=== PATIENT | male | born 1945 | race Caucasian/White ===

== ENCOUNTER 2020-10-17 06:18 | Day surgery (SDC) | payer MEDICARE, SELFPAY ==
[2020-09-11 14:32] VITALS: BMI 32.7
--- NOTE | 2020-10-17 | EGD_PTH ---
PATIENT: SHIRA MATA LOC: [facility] U#:[id number] AGE/SX: 75/M ROOM: RE10/17/[address]: Dr. David Lamb MD : 1945 BED: DIS: 10/17/2020 SPEC #: [id number] RECD: 10/17/20 12:32 STATUS: BORA ROSI #: [id number] DEVONTE: 10/17/20 00:[address]: David Lamb DEPT: SURGICAL PATHOLOGY RECD BY: José Parr ENTERED: 10/17/20 12:33 SP TYPE: EGD BIOPSY OT DR: Dr. Bhavin Lamb III, MD Tissues: A - Duodenum, NOS B - Gastric mucous membrane C - Esophageal mucous membrane Procedures: Surgery Specimen Level IV HEADER OPERATION: EGD PRE-OP DIAGNOSIS: Blood in stool TISSUE SUBMITTED: A ? Duodenum, B ? Antrum for H. pylori and path, C ? Distal esophagus MICROSCOPIC DIAGNOSIS A. Duodenum, biopsy: Gastric metaplasia. B. Gastric antrum, biopsy: Minimal chronic inflammation. C. Distal esophagus, biopsy: Focal changes of reflux. AM:luz 10/18/2020 COMMENT B. The results of immunohistochemistry for Helicobacter pylori will be reported separately ([id number]). MICROSCOPIC DESCRIPTION Slides are reviewed. GROSS DESCRIPTION A - Received in fixative is one container labeled with the patient's name and designated duodenum biopsy. The specimen consists of one irregular fragment of light arnold soft tissue that measures 0.5 x 0.4 x 0.1 cm. The specimen is totally submitted in one cassette. B - Received in fixative is one container labeled with the patient's name and designated antrum biopsy. The specimen consists of one irregular fragment of light arnold soft tissue that measures 0.4 x 0.3 x 0.1 cm. The specimen is totally submitted in one cassette. C - Received is one container labeled with the patient's name and not further designated. The specimen consists of two irregular fragments of light arnold soft tissue that in aggregate measure 0.5 x 0.5 x 0.1 cm. The specimen is totally submitted in one cassette. / ABRAHAN:luz 10/17/20 TC:3 CPT: 81939 x3
--- NOTE | 2020-10-17 | IMM_PTH ---
PATIENT: SHIRA MATA LOC: [facility] U#:[id number] AGE/SX: 75/M ROOM: RE10/17/[address]: Dr. David Lamb MD : 1945 BED: DIS: 10/17/2020 SPEC #: [id number] RECD: 10/17/20 13:29 STATUS: BORA RERika #: [id number] DEVONTE: 10/17/20 00:[address]: David Lamb DEPT: IMMUNOHISTOCHEMISTRY RECD BY: Augustina Vanegas ENTERED: 10/17/20 13:30 SP TYPE: IMMUNO OTHR DR: Dr. Bhavin Lamb III, MD Tissues: B - Stomach, NOS Procedures: H Pylori (initial) PHYSICIAN & INSTITUTION [place] [id number] SPECIMEN INFORMATION: Tissue Source: B - Antrum Clinical Info: Blood in stool Specimen Number: [id number] CPT code: 51215 METHODOLOGY: Deparaffinized sections of prefer/formalin-fixed tissue or PAP/DQ stained slides are incubated with monoclonal/polyclonal antibodies/oligonucleotide probes. Localization is made via biotin free immunoperoxidase method. Appropriate controls are performed and reacted as expected. Results on target cell population are indicated in the following table: RESULTS: ANTIBODY / CLONE RESULT Block B H Pylori (polyclonal) negative These tests were developed and their performance characteristics determined by [facility]. They may not have been cleared or approved by the U.S. Food and Drug Administration. The FDA has determined that such clearance or approval is not necessary. INTERPRETATION: B. Antrum biopsy: Negative for Helicobacter pylori organisms. AM:luz 10/18/2020
--- NOTE | 2020-10-17 08:23 | OP.EGD_ITS ---
Patient Name: Julio Powers Procedure Date: 10/17/2020 7:43 AM Date of : 1945 Age: 75 Procedure: Upper GI endoscopy Indications: Hemocult positive stool Providers: David Lamb MD Referring MD: Bhavin Lamb Iii Medicines: See the Anesthesia note for documentation of the administered medications Complications: No immediate complications. Procedure: Pre-Anesthesia Assessment: - Prior to the procedure, a History and Physical was performed, and patient medications and allergies were reviewed. The patient's tolerance of previous anesthesia was also reviewed. The risks and benefits of the procedure and the sedation options and risks were discussed with the patient. All questions were answered, and informed consent was obtained. Prior Anticoagulants: The patient has taken no previous anticoagulant or antiplatelet agents. ASA Grade Assessment: II - A patient with mild systemic disease. After reviewing the risks and benefits, the patient was deemed in satisfactory condition to undergo the procedure. After obtaining informed consent, the endoscope was passed under direct vision. Throughout the procedure, the patient's blood pressure, pulse, and oxygen saturations were monitored continuously. The gastroscope was introduced through the mouth, and advanced to the second part of duodenum. The upper GI endoscopy was accomplished without difficulty. The patient tolerated the procedure well. Scope In: 7:57:02 AM Scope Out: 8:04:17 AM Total Procedure Duration Time 0 hours 7 minutes 15 seconds Findings: Esophagitis with no bleeding was found 39 cm from the incisors. Biopsies were taken with a cold forceps for histology. A small hiatal hernia was present. Diffuse mildly erythematous mucosa without bleeding was found in the gastric antrum. Biopsies were taken with a cold forceps for histology. Diffuse mildly erythematous mucosa without active bleeding and with no stigmata of bleeding was found in the duodenal bulb. Biopsies were taken with a cold forceps for histology. Impression: - Reflux esophagitis. Biopsied. - Small hiatal hernia. - Erythematous mucosa in the antrum. Biopsied. - Erythematous duodenopathy. Biopsied. Recommendation: - Discharge patient to home. - Resume previous diet. - Continue present medications. - Telephone my office for pathology results in 1 week. Recommend over the counter omeprazole 40mg orally daily Procedure Code(s): --- Professional --- 12265, Esophagogastroduodenoscopy, flexible, transoral; with biopsy, single or multiple Diagnosis Code(s): --- Professional --- K21.0, Gastro-esophageal reflux disease with esophagitis K44.9, Diaphragmatic hernia without obstruction or gangrene K31.89, Other diseases of stomach and duodenum CPT copyright 2017 [employer]. All rights reserved. The codes documented in this report are preliminary and upon churn drill operator review may be revised to meet current compliance requirements. David Lamb MD 10/17/2020 8:22:41 AM This report has been signed electronically. Number of Addenda: 0 Note Initiated On: 10/17/2020 7:43 AM
--- NOTE | 2020-10-17 08:23 | OP.CCLET_ITS ---
10/17/2020 Bhavin Lamb Iii [address] [place] [address] Re : Upper GI endoscopy procedure for Julio Powers Dear Dr. Lamb This procedure was performed on Saturday, October 17, 2020. My impressions and recommendations are as follows: Impressions : - Reflux esophagitis. Biopsied. - Small hiatal hernia. - Erythematous mucosa in the antrum. Biopsied. - Erythematous duodenopathy. Biopsied. Recommendations : - Discharge patient to home. - Resume previous diet. - Continue present medications. - Telephone my office for pathology results in 1 week. Recommend over the counter omeprazole 40mg orally daily My findings are described in the full procedure note, which is enclosed. If I can be of further assistance, please feel free to contact me at Doctor phone number(s): Work: . Sincerely, David Lamb MD 10/17/2020 8:22:41 AM This report has been signed electronically.
--- NOTE | 2020-10-17 08:26 | OP.CCLET_ITS ---
10/17/2020 Bhavin Lamb Iii [address] [place] [address] Re : Colonoscopy procedure for Julio Powers Dear Dr. Lamb This procedure was performed on Saturday, October 17, 2020. My impressions and recommendations are as follows: Impressions : - Hemorrhoids found on perianal exam. - Diverticulosis in the sigmoid colon. - The examination was otherwise normal. - No specimens collected. Recommendations : - Discharge patient to home. - Resume previous diet. - Continue present medications. - Repeat colonoscopy in 10 years for screening purposes. Either mild hemorrhoids or mild gastritis/esophagitis source of stool card positive My findings are described in the full procedure note, which is enclosed. If I can be of further assistance, please feel free to contact me at Doctor phone number(s): Work: . Sincerely, David Lamb MD 10/17/2020 8:25:52 AM This report has been signed electronically.
--- NOTE | 2020-10-17 08:26 | OP.COLON_ITS ---
Patient Name: Julio Powers Procedure Date: 10/17/2020 8:05 AM Date of : 1945 Age: 75 Procedure: Colonoscopy Indications: Heme positive stool Providers: David Lamb MD Referring MD: Bhavin Lamb Iii Medicines: See the Anesthesia note for documentation of the administered medications Patient Profile: Last Colonoscopy: none. The patient's first colonoscopy is today. Complications: No immediate complications. Procedure: Pre-Anesthesia Assessment: - Prior to the procedure, a History and Physical was performed, and patient medications and allergies were reviewed. The patient's tolerance of previous anesthesia was also reviewed. The risks and benefits of the procedure and the sedation options and risks were discussed with the patient. All questions were answered, and informed consent was obtained. Prior Anticoagulants: The patient has taken no previous anticoagulant or antiplatelet agents. ASA Grade Assessment: II - A patient with mild systemic disease. After reviewing the risks and benefits, the patient was deemed in satisfactory condition to undergo the procedure. After I obtained informed consent, the scope was passed under direct vision. Throughout the procedure, the patient's blood pressure, pulse, and oxygen saturations were monitored continuously. The Colonoscope was introduced through the anus and advanced to the cecum, identified by appendiceal orifice and ileocecal valve. The colonoscopy was performed without difficulty. The patient tolerated the procedure well. The quality of the bowel preparation was good. The ileocecal valve and the appendiceal orifice were photographed. Scope In: 8:06:41 AM Scope Withdrawal Time 0 hours 6 minutes 24 seconds Scope Out: 8:17:22 AM Total Procedure Duration Time 0 hours 10 minutes 41 seconds Findings: Hemorrhoids were found on perianal exam. slightly enlarged. No mass A few diverticula were found in the sigmoid colon. The exam was otherwise without abnormality. Impression: - Hemorrhoids found on perianal exam. - Diverticulosis in the sigmoid colon. - The examination was otherwise normal. - No specimens collected. Recommendation: - Discharge patient to home. - Resume previous diet. - Continue present medications. - Repeat colonoscopy in 10 years for screening purposes. Either mild hemorrhoids or mild gastritis/esophagitis source of stool card positive Procedure Code(s): --- Professional --- 58712, Colonoscopy, flexible; diagnostic, including collection of specimen(s) by brushing or washing, when performed (separate procedure) Diagnosis Code(s): --- Professional --- K64.9, Unspecified hemorrhoids R19.5, Other fecal abnormalities K57.30, Diverticulosis of large intestine without perforation or abscess without bleeding CPT copyright 2017 [employer]. All rights reserved. The codes documented in this report are preliminary and upon certified professional coder review may be revised to meet current compliance requirements. David Lamb MD 10/17/2020 8:25:52 AM This report has been signed electronically. Number of Addenda: 0 Note Initiated On: 10/17/2020 8:05 AM
[2020-10-17 09:26] VITALS: BP 112/77; BP 125/87; PULSE 65; RESP 12; TEMP 36.8; O2SAT 100
== END 2020-10-17 09:30 ==
LOC: EN 08:52 → AC 08:52
PROVIDERS: PCP Family Medicine; Referring Provider Family Medicine; Visit Provider Surgery
PROC: 0DJD8ZZ Inspection of Lower Intestinal Tract, Via Natural or Artificial Opening Endoscopic (ICD-10-PCS; CPT 45378; principal; 2020-10-17 07:25)
DX: K57.30 Diverticulosis of large intestine without perforation or abscess without bleeding (principal); K29.50 Unspecified chronic gastritis without bleeding; K21.00 Gastro-esophageal reflux disease with esophagitis, without bleeding; K44.9 Diaphragmatic hernia without obstruction or gangrene; K31.89 Other diseases of stomach and duodenum; K64.9 Unspecified hemorrhoids; Z79.899 Other long term (current) drug therapy
CPT/HCPCS: 43239; 45378; 88305; 88342; J7120; J2405

== ENCOUNTER → 2020-12-27 09:19 | Outpatient (CLI) | payer MEDICARE, SELFPAY ==
[2020-09-11 14:32] VITALS: BMI 32.7
== END ==
PROVIDERS: PCP Family Medicine; Referring Provider Surgery; Visit Provider Surgery
DX: K64.8 Other hemorrhoids (principal); Z98.890 Other specified postprocedural states; Z87.19 Personal history of other diseases of the digestive system
CPT/HCPCS: 82274

== ENCOUNTER 2024-07-29 11:30 | Outpatient (RCR) | payer MEDICARE, SELFPAY ==
--- NOTE | 2024-07-12 10:51 | HP.PTEVAL_ITS ---
Patient's Visit Information Visit Information Visit Information: SHIRA MATA is a 78 year old M referred to Physical Therapy by IFTIKHAR PRIDE with a diagnosis of Radiculopathy LE symptoms. Date of Evaluation: 07/12/24 Physical Therapist: Myron Rojas, DPT, OCS, CSCS Visit Plan Frequency: 2x /Week Duration: 4-6 Weeks Plan: 2x/week for 4-6 weeks for NS positioning Lumbar ROM progression, psoas and quad rollout and stretching, core NS adn general strength to HEP, MH it HEP: trunk rotation, pelvic tilt post, seated flexion with hip precautions, NS position in stand and walk and HO given. Subjective Subjective: [facility] spine doctor sent over. last Thanksgiving started getting R leg/quad pain severe. has had it before but not that bad. L MOLLY 2015. Went to ortho and diagnostics including MRI, US, X ray. Nothing wrong with the hip. Pain got severe with WB. Meds helped it improve. Sent to spine doctor last week and thnks maybe pinched nerve but no back pain. Is to try therapy first to see if it helps and put on strong advil daily and two tyelnol. Now sleeping fine but was trouble at first with uncomfortable position. Pain has abated alot but not gone. Standing is still worse, Steps are OK. Comfortable at rest. needs to be on feet for a while before it kicks in. Gets it daily. No problem with driving. Basic ADLs are I with shower seat but thinks he could stand now. Retired. Spends day: woodworking and avoided it until recently. Has to sit often now when he does it.Slower. No regualr exercises since this started. Used to walk alot. 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 Trasnfer bed and chair I. Steps reciprocal with rail. No pain. Lumbar AROM ext slight pressure L LB, L SB slight pressure L LB, flexion adn R SB are painfree, all are mod limited. psoas, quad and HS all mod tight with a -30 90/90 test. Very little pelvic movement. reflexes 2/3 patella and achilles today. Sensation WNL to gross light touch IN b LE. - slump, - SLR. Obvious IR at opposite hip with hip f Good balance todaylexion testing. core weakness at 3+ flexiona dn ext. Hip strength abd 3+, ext 3, flexion 4- all B. knee and ankle strength 4- B. No pyotomal problems. Only recreated pain today with walking after a while and pain in L quad and below knbee anterior transiently Balance/Special Test Scores Lower Extremity Functional Score: 52 Goals Goal 1:: I appropriate HEP for NS positioning and stretch strength to manage symptoms. Goal Time Frame: 4-6 Weeks Goal 2:: Pain in L quad 90% better and manageable at 1/10 at worst Goal Time Frame: 4-6 Weeks Goal 3:: walk at grocery store without increased pain Goal Time Frame: 4-6 Weeks Goal 4:: work in [employer] again without needing to sit. Goal Time Frame: 4-6 Weeks Rehabilitation Potential Physical Therapy Diagnosis: Likely stenosis with limited LB ROM, tightness in legs and weakness effecting comfortable funciton Rehabilitation Potential: Good Anticipated Interventions Patient/Client Instruction: Educate patient on: Condition and Risk Factors For the Purpose of:: To decrease pain, To increase ROM, To improve nutrient deli very to tissue, To improve muscle performance and motor function, To increase tolerance to activity/condition/position, To improve ability of physical actions for home/community/work/leisure and To improve gait and locomotor functions Therapeutic Exercise to Include: Strength training, Postural training, Flexibilty training, Passive ROM, Active ROM and Dynamic Lumbar Stabilization For the Purpose of:: To decrease pain, To increase ROM, To improve nutrient delivery to tissue, To improve muscle performance and motor function, To increase tolerance to activity/condition/position and To improve gait and locomotor functions Manual Therapy Techniques to Include: Mobilization, Passive ROM and Soft tissue mobilization For the Purpose of:: To decrease pain, To increase ROM, To improve nutrient delivery to tissue, To increase oxygenation perfusion, To improve muscle performance and motor function and To increase tolerance to activity/condition/position Thermo therapy (hot pack): Yes For the Purpose of:: To decrease pain, To increase ROM and To improve nutrient delivery to tissue Text: Thank you for the opportunity to evaluate your patient. For Medicare and Medicare HMO plans, please review the plan of care and approve it. It will need to be FAXED BACK to us at [phone] for Medicare purposes. For Medicare only, by signing this I certify the plan of care. Please let me know if there are questions or concerns regarding this plan of care. Physician Signature: Date:
--- NOTE | 2024-08-18 07:18 | HP.PTDCNRP_ITS ---
Patient Information Patient Information: SHIRA MATA was seen in my office for initial evaluation on 07/12/24. The following Plan of Care was established for this patient: POC Established Initial Frequency: 2x /Week Initial Duration: 4-6 Weeks Anticipated Interventions Patient/Client Instruction: Educate patient on: Condition and Risk Factors For the Purpose of:: To decrease pain, To increase ROM, To improve nutrient delivery to tissue, To improve muscle performance and motor function, To increase tolerance to activity/condition/position, To improve ability of p hysical actions for home/community/work/leisure and To improve gait and locomotor functions Therapeutic Exercise to Include: Strength training, Postural training, Flexibilty training, Passive ROM, Active ROM and Dynamic Lumbar Stabilization For the Purpose of:: To decrease pain, To increase ROM, To improve nutrient delivery to tissue, To improve muscle performance and motor function, To increase tolerance to activity/condition/position and To improve gait and locomotor functions Manual Therapy Techniques to Include: Mobilization, Passive ROM and Soft tissue mobilization For the Purpose of:: To decrease pain, To increase ROM, To improve nutrient delivery to tissue, To increase oxygenation perfusion, To improve muscle performance and motor function and To increase tolerance to activity/condition/position Thermo therapy (hot pack): Yes For the Purpose of:: To decrease pain, To increase ROM and To improve nutrient delivery to tissue Last Seen Last Seen: This patient was last seen in our office 07/29/24. Pertinent comments regarding their Physical therapy will appear below: Pt seen 6 visits of POC and was 90% better. HE was to f/u two weeks later to ensure progress but has communicated that he is doing well and does not need to return. At this point, I will discontinue him from my care at his request. At this point I will be discontinuing this patient from physical therapy. I would be happy to see this patient again in the future if found appropriate by the physician. Thank you! Myron Rojas, DPT, OCS, CSCS Balance/Gait/Functional tests Balance/Special Test Scores Oswestry Low Back Score: 1 Lower Extremity Functional Score: 52
== END 2024-07-29 19:00 | disposition home or self-care (01) ==
LOC: PT 11:30
PROVIDERS: PCP Family Medicine
DX: M54.10 Radiculopathy, site unspecified (principal); M79.652 Pain in left thigh
CPT/HCPCS: 97110; 97162; 97530

== ENCOUNTER 2025-05-24 10:57 | Emergency (ER) | payer MEDICARE, SELFPAY ==
[2025-05-24 10:57] VITALS: BP 146/98; PULSE 85; RESP 14; TEMP 36.6; O2SAT 98; BMI 33.5
--- NOTE | 2025-05-24 11:14 | CT_ITS ---
PROCEDURE: SINUS/FACIAL BONE 05/24/2025 REASON FOR EXAM: TRAUMA TECHNIQUE: Procedure Code: CTSI Modality: CT Procedure: SINUS/FACIAL BONE Coronal and Sagittal reconstruction series were provided. One or more dose reduction techniques were used (e.g., Automated exposure control, adjustment of the mA and/or kV according to patient size, use of iterative reconstruction technique). RADIATION DOSE SUMMARY: CTDlvol: 29.38 mGy DLP: 657.64 mGycm COMPARISON: None FINDINGS: Frontal: Frontal sinuses are clear. Ethmoid: Partial opacification of the ethmoid sinuses. Sphenoid: Sphenoid sinuses clear. Maxillary: Minimal mucosal thickening of the maxillary sinuses. Turbinates: Unremarkable There is evidence of a compressed nasal fracture with overlying soft tissue swelling and air within the subcutaneous tissues. Nasal septal deviation towards the left-sided midline. Soft tissue prominence in the nasal fossa suggestive of possible hematoma. Mastoids/Middle Ears: Unremarkable CT/Sinus/Facial Bone IMPRESSION: Depressed nasal fracture with soft tissue swelling and air within the soft tiss ues. Findings suggestive of blood within the nasal cavity with the septal deviation towards the left side of the midline. Reading Location: [facility]
--- NOTE | 2025-05-24 11:16 | CT_ITS ---
PROCEDURE: SPINE CERVICAL WITHOUT CONTRAS 05/24/2025 REASON FOR EXAM: TRAUMA TECHNIQUE: Procedure Code: CTSPC Modality: CT Procedure: SPINE CERVICAL WITHOUT CONTRAS Coronal and Sagittal reconstruction series were provided. One or more dose reduction techniques were used (e.g., Automated exposure control, adjustment of the mA and/or kV according to patient size, use of iterative reconstruction technique. RADIATION DOSE SUMMARY: CTDlvol: 28.11 mGy DLP: 602.05 mGycm COMPARISON: None FINDINGS: Alignment: Straightening of the normal cervical lordosis. Vertebrae: Multilevel spondylosis. Soft Tissues: No prevertebral soft tissue swelling. Other: C1-2: Degenerative changes of the atlantoaxial joint. No fracture is seen. C2-3: Disc space is well-maintained. No abnormality is present. C3-4: Moderate degree of disc space narrowing. Uncovertebral arthrosis. Moderate degree of bilateral neural foraminal stenosis worse on the right side. C4-5: Marked degree of disc space narrowing. Spondylosis. Uncovertebral arthrosis worse on the left side with bilateral neural foraminal stenosis worse on the left side. C5-6: Marked degree of disc space narrowing. Spondylosis. Uncovertebral arthrosis. Bilateral neural foraminal stenosis left worse than right. C6-7: Marked degree of disc space narrowing. Spondylosis. Uncovertebral arthrosis. Bilateral neural foraminal stenosis worse on the left side. C7-T1: CT/Spine Cervical without Contras IMPRESSION: Multilevel disc space narrowing with spondylosis and uncovertebral arthrosis an d multilevel neural foraminal stenosis. Reading Location: [facility]
--- NOTE | 2025-05-24 11:16 | CT_ITS ---
PROCEDURE: BRAIN/HEAD WITHOUT CONTRAST 05/24/2025 REASON FOR EXAM: TRAUMA TECHNIQUE: Procedure Code: CTBR Modality: CT Procedure: BRAIN/HEAD WITHOUT CONTRAST Coronal and Sagittal reconstruction series were provided. One or more dose reduction techniques were used (e.g., Automated exposure control, adjustment of the mA and/or kV according to patient size, use of iterative reconstruction technique. RADIATION DOSE SUMMARY: CTDlvol: 44.99 mGy DLP: A 12.98 mGycm COMPARISON: None FINDINGS: Brain: Low density in the periventricular white matter suggests mild chronic small vessel ischemic changes. CSF Spaces: Mild generalized cerebral atrophy Sinuses/Mastoids: Clear at visualized levels Bones: Unremarkable CT/Brain/Head without Contrast IMPRESSION: CHRONIC CHANGES. NO ACUTE FINDINGS. Reading Location: [id number]
[2025-05-24] MEDS: Oxymetazoline 0.05% 1 SPRAY SPRAY.BTL 2 SPRAY NASAL (11:19)
--- NOTE | 2025-05-24 11:20 | ED.VIS.FALL ---
HPI HPI - Fall History of Present Illness Chief Complaint: Fall Narrative Narrative: Chief complaint and HPI: 79-year-old male with past medical history of neuropathy presents for evaluation of epistaxis after fall. Patient states he was walking down steps carrying a box when he lost his balance and fell forward down the steps. He was unable to catch himself and therefore hit his face on the cement. Denies LOC. Not on blood thinners. Immediately had epistaxis which has since resolved. He endorses some pain in the nose but denies headache, vision changes, hearing changes, neck pain, chest pain, shortness of breath, back pain, extremity or abdominal pain. Review of systems: See HPI Medications: As listed on the chart Allergies: As listed on the chart PFSH: Per chart Vital signs: As listed on the chart. Reviewed. Physical exam: Gen: A&O x3, NAD Head: Normocephalic, atraumatic Eyes: No sclera icterus, conjunctiva clear, PERRL, EOMI ENT: Hearing aids removed -TMs clear BL, moist mucous membranes, posterior oropharynx unremarkable, teeth intact, no blood in the mouth, patient has a small abrasion to the middle upper lip, dried blood/blood clots in the bilateral nares-these were removed, no active bleeding of the bilateral naris, no nasal septal hematoma, patient has tenderness of the nose diffusely with swelling and ecchymosis, abrasions to the nasal bridge but no laceration, no facial tenderness otherwise Neck: Trachea midline, full range of motion, nontender CV: RRR, no murmurs, no chest wall TTP Resp: Lungs CTA BL, no w/r/c GI: Abd soft, non-distended, non-tender, no r/r/g Musc: Full ROM, no deformity, no spinal TTP, no gwyn step-offs Skin: Warm, dry Neuro: Alert, oriented, grossly intact, sensation intact, GCS 15 Psych: Cooperative, appropriate mood and affect [facility] Medical History (Updated 05/24/25 @ 12:[address] Curtis Garrett, ) Internal hemorrhoid History of bloody stools Guaiac positive stools Neuropathy Home Medications ?Medication ?Instructions ?Recorded ?Last Taken ?Type Vit B12/Levomefolate/Vit B6/B2 1 tablet PO DAILY 05/15/17 Unknown History gabapentin 800 mg tablet 800 mg PO TIDCM 11/04/16 Unknown History ibuprofen 200 mg tablet 200 mg PO TID PRN PRN Pain 11/04/16 Unknown History Allergy/AdvReac Type Severity Reaction Status Date / Time No Known Allergies Allergy Verified 05/24/25 11:00 Family History Brother Cancer Daughter Cancer Surgical History History of colonoscopy (~09/2020) Status post total hip replacement, left Social History Smoking Status: Never smoker alcohol intake: current alcohol intake frequency: holidays/special occasions only EXAM Physical Exam Const Vital Signs: 05/24/25 10:57 05/24/25 11:13 Temperature 98 F Temperature Source Temporal Pulse Rate 85 Respiratory Rate 14 Respiratory Effort Normal Respiratory Depth Normal Respiratory Pattern Normal Blood Pressure 146/98 H Blood Pressure Mean 114 Pulse Ox 98 Oxygen Delivery Method Room Air Room Air MDM MDM MDM Narrative Medical decision making narrative: 79-year-old male with past medical history of neuropathy presents for evaluation of epistaxis after fall. Patient states he was walking down steps carrying a box when he lost his balance and fell forward down the steps. He was unable to catch himself and therefore hit his face on the cement. Denies LOC. Not on blood thinners. See physical exam findings. Will apply Afrin and nasal plug to prevent recurrent epistaxis. Differential diagnosis includes but is not limited to nasal bone fracture, facial fracture, contusion, intracranial bleed, cervical fracture. Patient offered pain medicine but declined. CT head, cervical spine, face will be obtained. CT head and neck without any acute traumatic injury. Chronic changes. CT of the face shows a depressed nasal fracture with soft tissue swelling and air within the soft tissues. On physical exam there is no overlying laceration, 2 abrasions. There is no crepitus. There is findings suggestive of blood within the nasal cavity with a septal deviation towards the left side of midline. On physical exam there is no nasal septal hematoma. On reevaluation, patient's epistaxis has resolved. Given the air within the soft tissues, I did consult to ENT to assess if patient need to be on antibiotics. No antibiotics at this time. Follow-up outpatient with Dr. Le. Patient was educated on Tylenol as needed for pain. Ice for swelling. He will be given a nasal clamp and Afrin spray in case rebleeding occurs at home. He confirmed understand the plan. Patient will discharge home. Impression: 1. Nasal bone fracture 2. Epistaxis, resolved 3. Mechanical fall Radiography Diagnostic Testing: Clinical Impression(s) from Imaging Studies Facial/Sinus 05/24/25 11:14 IMPRESSION: Depressed nasal fracture with soft tissue swelling and air within the soft tissues. Findings suggestive of blood within the nasal cavity with the septal deviation towards the left side of the midline. Reading Location: [id number] Brain CT 05/24/25 11:16 IMPRESSION: CHRONIC CHANGES. NO ACUTE FINDINGS. Reading Location: [facility] Cervical Spine CT 05/24/25 11:16 IMPRESSION: Multilevel disc space narrowing with spondylosis and uncovertebral arthrosis and multilevel neural foraminal stenosis. Reading Location: [facility] Discharge Plan Triage Chief Complaint: Fall ED Provider: Curtis Garrett Dx/Rx/DC Orders Clinical Impression: Fracture of nasal bone, Anterior epistaxis, Fall Instructions: ED Epistaxis (Adult), ED Nose Fracture, with X-Ray, ED Fall Prevention Prescriptions: No Action gabapentin 800 MG tablet 800 mg PO TIDCM ibuprofen 200 MG tablet 200 mg PO TID PRN PRN (Reason: Pain) Vit B12/Levomefolate/Vit B6/B2 1 tablet PO DAILY Primary Care Provider: Nakul Aguero Referrals: Nakul Aguero MD [Primary Care Provider, Family Practice] - 3-5 Days Wilmar Gregg MD [Med Staff - Active Staff, Ear Nose Throat (ENT)] - 3-5 Days Activity Restrictions/Additional Instructions: Ice as needed for swelling. Tylenol as needed for pain. Follow-up with ENT. Print Language: [place] Disposition Disposition: Home, Self Care
[2025-05-24 12:36] VITALS: BP 146/98; PULSE 85; RESP 14; TEMP 36.6; O2SAT 98
== END 2025-05-24 12:38 | disposition home or self-care (01) ==
PROVIDERS: Emergency Provider Surgery; PCP Family Medicine; Visit Provider Surgery
DX: S02.2XXA Fracture of nasal bones, initial encounter for closed fracture (principal); S00.511A Abrasion of lip, initial encounter; S00.31XA Abrasion of nose, initial encounter; W10.9XXA Fall (on) (from) unspecified stairs and steps, initial encounter; Y93.01 Activity, walking, marching and hiking; R04.0 Epistaxis; J34.2 Deviated nasal septum; G62.9 Polyneuropathy, unspecified; Z79.899 Other long term (current) drug therapy
CPT/HCPCS: 70450; 70486; 72125; 99282